=== PATIENT | male | born 1940 | race Caucasian/White ===

== ENCOUNTER 2017-05-11 21:55 | Emergency (ER) | payer MEDICARE, BC ==
[2017-05-11] MEDS ORDERED: EPINEPHrine Nasal Soln 30 MG/30 ML Bottle NAS ONE (22:00)
[2017-05-11] MEDS ORDERED: cloNIDine 0.1 MG Tab PO ONE (22:06)
[2017-05-11] MEDS ORDERED: cloNIDine 0.1 MG Tab ONE (22:06)
--- NOTE | 2017-05-11 22:36 | EDM.PDOC ---
ED HPI GENERAL MEDICAL PROBLEM - General Chief Complaint: General Stated Complaint: nosebleed Time Seen by Provider: 05/11/17 22:10 Source of Information: Reports: Patient, EMS, Family History Limitations: Reports: No Limitations - History of Present Illness INITIAL COMMENTS - FREE TEXT/NARRATIVE: Comes in by ambulance after having a bloody nose for the last 1.5-2 hours. States that he gets them a lot but he can usually stop them. Denies any trauma to the area. States that he is supposed to be on 2 meds but he only takes one and he didn't take that one today because they don't agree with him. HE doesn' t monitor his BP at home. He states that he has tried to put pressure on it without any success. Onset: Sudden Location: Reports: Face - Related Data Allergies Allergy/AdvReac Type Severity Reaction Status Date / Time No Known Allergies Allergy Verified 05/11/17 22:21 Home Meds: Home Meds Lisinopril 20 mg PO DAILY 04/29/16 [History] Tamsulosin [Flomax] 2 tab PO DAILY 04/29/16 [History] Past Medical History Cardiovascular History: Reports: Hypertension Gastrointestinal History: Reports: GERD, GI Bleed Genitourinary History: Reports: BPH Musculoskeletal History: Reports: Arthritis, Back Pain, Chronic Social & Family History - Family History Family Medical History: Noncontributory - Tobacco Use Smoking Status *Q: Never Smoker - Caffeine Use Caffeine Use: Reports: None - Recreational Drug Use Recreational Drug Use: No ED ROS GENERAL - Review of Systems Review Of Systems: See Below Constitutional: Reports: No Symptoms HEENT: Reports: Nosebleed Respiratory: Reports: No Symptoms Cardiovascular: Reports: No Symptoms GI/Abdominal: Reports: No Symptoms Musculoskeletal: Reports: No Symptoms Skin: Reports: No Symptoms Neurological: Reports: No Symptoms ED EXAM, GENERAL - Physical Exam Exam: See Below Exam Limited By: No Limitations General Appearance: Alert, WD/WN, Mild Distress Ears: Normal External Exam, Normal Canal, Normal TMs Nose: Normal Inspection, Other (left nare has large amount of blood noted from it. It does have some clots. pressure held without any improvement. Some blood noted from right nare but much less. Nasal packing with adrenal inserted up into the left nostril which controlled the bleeding initially. ) Throat/Mouth: Normal Inspection, No Airway Compromise Head: Normocephalic Neck: Normal Inspection, Supple, Non-Tender Respiratory/Chest: No Respiratory Distress, Lungs Clear, Normal Breath Sounds Cardiovascular: Regular Rate, Rhythm GI/Abdominal: Normal Bowel Sounds, Soft, Non-Tender Extremities: Normal Inspection, Non-Tender, No Pedal Edema Neurological: Alert, Oriented Psychiatric: Normal Affect Skin Exam: Warm, Dry, Intact Course - Vital Signs Last Recorded V/S: Last Vital Signs Temp 97.9 F 05/11/17 22:25 Pulse 71 05/11/17 23:01 Resp 18 05/11/17 22:25 BP 128/91 H 05/11/17 23:33 Pulse Ox 95 05/11/17 22:25 - Orders/Labs/Meds Meds: Medications Discontinued Medications Generic Name Dose Route Start Last Admin Trade Name Tyler PRN Reason Stop Dose Admin Clonidine HCl Confirm 05/11/17 22:06 05/11/17 22:48 Catapres Administered 05/11/17 22:07 Not Given Dose 0.1 mg .ROUTE .STK-MED ONE Clonidine HCl 0.1 mg 05/11/17 22:06 05/11/17 22:10 Catapres PO 05/11/17 22:07 0.1 mg STAT ONE Administration Epinephrine HCl 0.5 mg 05/11/17 22:00 05/11/17 23:22 Adrenalin 1:1000 Nasal Soln RICKY 05/11/17 22:01 10 ml ONETIME ONE Administration - Re-Assessments/Exams Free Text/Narrative Re-Assessment/Exam: 05/11/17 2120 BP continues to be elevated and clonidine given for it. No bleeding noted at this time from ether nare. Will continue to monitor for any further bleeding. 2310 some bleeding coming through to the right nare. 2 ml of adrenal instilled and bleeding subsided. Is able to sit up without bleeding noted. Departure - Departure Time of Disposition: 23:36 Disposition: Home, Self-Care 01 Condition: Good Clinical Impression: Epistaxis not due to trauma - Discharge Information Referrals: Neto Martínez MD [Primary Care Provider] - Forms: ED Department Discharge Additional Instructions: Return to the clinic on Thursday to have packing removed. Call [phone] to make appt. Do not remove packing on own You need to be consistent about taking BP pills. You need apt with provider of choice to discuss changing BP meds if they do not agree with you. - Problem List & Annotations (1) Epistaxis not due to trauma SNOMED Code(s): 96675388 Code(s): R04.0 - EPISTAXIS Status: Acute Priority: High Current Visit: Yes - Problem List Review Problem List Initiated/Reviewed/Updated: Yes
[2017-05-11 23:34] VITALS: BP 128/91
== END 2017-05-11 23:45 | disposition home or self-care (01) ==
LOC: CC.ED 21:55
DX: R04.0 Epistaxis (principal); I10 Essential (primary) hypertension; Z79.899 Other long term (current) drug therapy
CPT/HCPCS: 99282; A9270

== ENCOUNTER 2018-06-10 13:45 | Emergency (ER) | payer MEDICARE, BC ==
[2018-06-10 14:33] VITALS: BP 146/81
[2018-06-10] MEDS ORDERED: Oxymetazoline 0.05% Nasal Spray 15 ML Bottle NAS ONE (14:55)
[2018-06-10] MEDS ORDERED: EPINEPHrine Nasal Soln 30 MG/30 ML Bottle NAS PRN (14:56)
--- NOTE | 2018-06-10 15:12 | EDM.PDOC ---
ED HPI GENERAL MEDICAL PROBLEM - General Chief Complaint: ENT Problem Stated Complaint: nose bleed Time Seen by Provider: 06/10/18 14:15 Source of Information: Reports: Patient History Limitations: Reports: No Limitations - History of Present Illness INITIAL COMMENTS - FREE TEXT/NARRATIVE: Aj is a 77 year old male who presents to the ED with c/o nose bleed. He reports it first started bleeding around 7 am. Has bled intermittently since then. He reports the half hour prior to ED presentation bleeding seemed to worsen and he couldn't get it to stop. He is not on any blood thinners. No trauma to area. Has not had a bloody nose for a number of years. Does feel blood is draining down his throat. He believes it first started bleeding in his right nostril, but is unsure now as it seems to be coming more out his left nostril. Denies any other issues. No chest pain, shortness of breath, blood in stool, dizziness. Onset: Today Onset Date: 06/10/18 Onset Time: 07:00 Duration: Constant Location: Reports: Other (nose) Associated Symptoms: Reports: No Other Symptoms. Denies: Confusion, Chest Pain , Cough, cough w sputum, Diaphoresis, Fever/Chills, Headaches, Loss of Appetite , Malaise, Nausea/Vomiting, Rash, Seizure, Shortness of Breath, Syncope, Weakness - Related Data Allergies Allergy/AdvReac Type Severity Reaction Status Date / Time No Known Allergies Allergy Verified 06/10/18 14:31 Home Meds: Home Meds Lisinopril 20 mg PO DAILY 04/29/16 [History] Tamsulosin [Flomax] 2 tab PO DAILY 04/29/16 [History] Ascorbate Calcium [Vitamin C] 1 ea PO DAILY 06/04/17 [History] Calcium Carbonate [Calcium] 1 ea PO ASDIRECTED 06/04/17 [History] Cholecalciferol (Vitamin D3) [Vitamin D3] 1 ea PO DAILY 06/04/17 [History] Docusate Sodium [Colace] 1 ea PO ASDIRECTED PRN 06/04/17 [History] Furosemide 40 mg PO DAILY 06/04/17 [History] Ibuprofen/Diphenhydramine Cit [Advil Pm Caplet] 2 ea PO ASDIRECTED PRN 06/04/17 [History] Multivitamin [Multivitamins] 1 ea PO BID 06/04/17 [History] Saw/Vit E/Sod Margaret/Lyc/Beta/Pyg [Prostate Health Caplet] 1 ea PO DAILY 06/04/17 [ History] Vit A/C/E/Zinc/Selenium/Copper [Vision Formula Tablet] 1 ea PO DAILY 06/04/17 [ History] hydrALAZINE HCl [Hydralazine HCl] 25 mg PO BEDTIME 06/04/17 [History] Past Medical History HEENT History: Reports: Epistaxis Cardiovascular History: Reports: Hypertension, Pacemaker Gastrointestinal History: Reports: GERD, GI Bleed Genitourinary History: Reports: BPH Musculoskeletal History: Reports: Arthritis, Back Pain, Chronic Immunologic History: Reports: None - Past Surgical History Cardiovascular Surgical History: Reports: Pacer GI Surgical History: Reports: None Male Surgical History: Reports: None Social & Family History - Family History Family Medical History: Noncontributory - Tobacco Use Smoking Status *Q: Never Smoker - Caffeine Use Caffeine Use: Reports: None ED ROS ENT - Review of Systems Review Of Systems: ROS reveals no pertinent complaints other than HPI. ED EXAM, ENT - Physical Exam Exam: See Below Exam Limited By: No Limitations General Appearance: Alert, WD/WN, No Apparent Distress Eye Exam: Bilateral Eye: EOMI, PERRL Ears: Normal External Exam, Normal Canal, Hearing Grossly Normal, Normal TMs Nose: Active Bleeding (bleeding from both nostrils). No: Nasal Deformity, Nasal Swelling, Nasal Tenderness Mouth/Throat: Normal Inspection, Normal Gums, Normal Lips, Normal Oropharynx, Normal Teeth, Bleeding, Other (bloody drainage, from nostril) Head: Atraumatic, Normocephalic Neck: Normal Inspection, Supple, Non-Tender, Full Range of Motion Respiratory/Chest: No Respiratory Distress, Lungs Clear, Normal Breath Sounds, No Accessory Muscle Use, Chest Non-Tender Cardiovascular: Normal Peripheral Pulses, Regular Rate, Rhythm, No Edema, No Gallop, No JVD, No Murmur, No Rub Neurological: Alert, Oriented, CN II-XII Intact, Normal Cognition, Normal Gait, Normal Reflexes, No Motor/Sensory Deficits Psychiatric: Normal Affect, Normal Mood Course - Vital Signs Last Recorded V/S: Last Vital Signs Temp 97.9 F 06/10/18 14:27 Pulse 60 06/10/18 14:27 Resp 18 06/10/18 14:27 BP 146/81 H 06/10/18 14:27 Pulse Ox 99 06/10/18 14:27 - Orders/Labs/Meds Meds: Medications Discontinued Medications Generic Name Dose Route Start Last Admin Trade Name Markq PRN Reason Stop Dose Admin Epinephrine HCl 0.5 mg 06/10/18 14:56 06/10/18 15:12 Adrenalin Nasal Soln RICKY 1 applic Q3H PRN Administration Other Oxymetazoline HCl 1 ml 06/10/18 14:55 06/10/18 14:57 Afrin Original 0.05% Nasal [place] RICKY 06/10/18 14:56 1 spray ONETIME ONE Administration - Re-Assessments/Exams Free Text/Narrative Re-Assessment/Exam: Nurse was applying pressure and ice to nose. Difficult exam due to large amount of bloody drainage. Afrin spray applied to bilateral nostrils. This did stop bleeding almost immediately. Did opt to apply epinephrine using cotton swab to bilateral side. Patient monitored for additional 45 minutes. No return of bleeding without further intervention, so will discharge home. Departure - Departure Time of Disposition: 15:12 Disposition: Home, Self-Care 01 Condition: Good Clinical Impression: Epistaxis not due to trauma - Discharge Information *PRESCRIPTION DRUG MONITORING PROGRAM REVIEWED*: Not Applicable *COPY OF PRESCRIPTION DRUG MONITORING REPORT IN PATIENT BALWINDER: Not Applicable Instructions: Nosebleed, [id number] Referrals: Jose Pike MD [Primary Care Provider] - Forms: ED Department Discharge Additional Instructions: Afrin nasal spray as needed for onset of nose bleed If bleeding recurs, apply pressure and try ice pack to bridge of nose Avoid sneezing or coughing if able. Return to ED if unable to get bleeding to stop at home or if bleeding persists > 30 minutes Follow up with PCP for recheck if bleeding recurs
== END 2018-06-10 15:28 | disposition home or self-care (01) ==
LOC: CC.ED 13:45
DX: R04.0 Epistaxis (principal); I10 Essential (primary) hypertension; Z79.899 Other long term (current) drug therapy
CPT/HCPCS: 99282